=== PATIENT | male | born 1990 | race Caucasian/White ===

== ENCOUNTER 2023-07-15 19:59 | Emergency (ER) | payer SELFPAY ==
[~2023-07-15] VITALS: Ht 167.6 cm; Wt 77.3 kg
[2023-07-15] MEDS ORDERED: SODIUM CHLORIDE 0.9% 1,000 ML IV ONE (20:45)
[2023-07-15 22:50] VITALS: BP 117/79; PULSE 52; RESP 18; TEMP 98
== END 2023-07-15 23:11 | disposition left against medical advice (07) ==
LOC: EMS 19:59
DX: F19.10 Other psychoactive substance abuse, uncomplicated (principal); Z53.29 Procedure and treatment not carried out because of patient's decision for other reasons
CPT/HCPCS: 93005; 99283

== ENCOUNTER 2023-07-16 11:26 | Emergency (ER) | payer OTHER ==
[~2023-07-16] VITALS: Ht 157.5 cm; Wt 75.0 kg
[2023-07-16 11:28] VITALS: TEMP 99.8
[2023-07-16 12:04] VITALS: BP 101/59; PULSE 56; RESP 16
== END 2023-07-16 12:05 | disposition left against medical advice (07) ==
LOC: EMS 11:26
DX: R40.4 Transient alteration of awareness (principal)
CPT/HCPCS: 99283; Z7502